=== PATIENT | female | born 1990 | race Caucasian/White ===

== ENCOUNTER 2019-12-10 14:37 | Emergency (ER) | payer MEDICAID ==
[~2019-12-10] VITALS: Ht 152.4 cm; Wt 72.0 kg
[2019-12-10] MEDS ORDERED: ALBUTEROL (0.083%) 2.5MG/3ML NEB HHN ONE (15:15)
[2019-12-10 17:00] VITALS: BP 128/78
== END 2019-12-10 17:00 | disposition home or self-care (01) ==
LOC: ER 14:48
DX: J45.901 Unspecified asthma with (acute) exacerbation (principal); Z98.890 Other specified postprocedural states
CPT/HCPCS: 71045; 94640; 99283; Z7610

== ENCOUNTER 2022-07-24 21:47 | Emergency (ER) | payer MEDICAID, OTHER ==
[~2022-07-24] VITALS: Ht 149.9 cm; Wt 70.1 kg
[2022-07-25] MEDS ORDERED: IPRATROPIUM/ALBUTEROL 0.5-3(2.5)MG/3ML NEB HHN ONE (00:30)
[2022-07-25 00:45] VITALS: BP 164/96
[2022-07-25] MEDS ORDERED: ACETAMINOPHEN 325MG TABLET PO ONE (00:45)
[2022-07-25] MEDS ORDERED: IBUPROFEN 400MG TABLET PO ONE (00:45)
[2022-07-25] MEDS ORDERED: DEXAMETHASONE 4MG/ML 1ML VIAL IM SCH (01:15)
[2022-07-25] MEDS ORDERED: ACET-2708 MT (01:29)
[2022-07-25] MEDS ORDERED: ALBU6.7H15 INH (01:29)
== END 2022-07-25 01:50 | disposition home or self-care (01) ==
LOC: ER 21:47
DX: J45.901 Unspecified asthma with (acute) exacerbation (principal); B34.9 Viral infection, unspecified
CPT/HCPCS: 71045; 96372; 99283; J1100; Z7610